=== PATIENT | male | born 1965 | race African-American/Black ===

== ENCOUNTER 2016-12-06 10:32 | Inpatient (IN) | payer OTHER ==
[~2016-12-06] VITALS: Ht 188 cm; Wt 121.1 kg
[~2016-12-06 10:32] MED LIST: ASCRIPTIN1 TA1 PO; HCTZ12.5TAB PO; MIDRIN 325 MG-11 CAP PO; NORCO 325 MG-7.1 TAB PO; ZESTRIL 20MG TA20 MG PO
[2017-02-01] MEDS ORDERED: VITAMIN D1000 IU PO (12:51)
[2017-02-01] MEDS ORDERED: ASPIRIN 81M81 MG/TA2 PO (12:51)
[2017-02-01] MEDS ORDERED: ZANTAC 150150 MG PO (12:52)
[2017-02-01] MEDS ORDERED: LIPITOR 40MG TA40 MG PO (12:52)
[2017-02-01] MEDS ORDERED: ZYRTEC5 MG PO (12:53)
[2017-02-04] VITALS (10 sets, daily range): BP systolic 102–1146; BP diastolic 51–77; PULSE 16–71; TEMP 98.2–98.7
[2017-02-05 00:56] VITALS: BP 104/75; PULSE 90; TEMP 98.9
[2017-02-05 04:02] VITALS: BP 110/56; PULSE 86; TEMP 98.6
[2017-02-05] MEDS ORDERED: NORCO 325 MG-7.1 TAB PO (06:13)
[2017-02-05] MEDS ORDERED: ASPI325T6 PO (06:13)
[2017-02-05] MEDS ORDERED: CELEBREX 200MG200 MG PO (06:13)
[2017-02-05] MEDS ORDERED: ULTRAM 50MG TAB50 MG PO (06:14)
[2017-02-05 07:32] LABS: HEMATOCRIT 40.6 % (42.0-52.0); HEMOGLOBIN 12.9 g/dl (13.5-18.0)
[2017-02-05 07:35] VITALS: BP 105/59; PULSE 85; TEMP 98.1
[2017-02-05 11:44] VITALS: BP 125/66; PULSE 78; TEMP 98.8
[2017-02-05 15:36] VITALS: BP 123/55; PULSE 105; TEMP 99.9
[2017-02-05 20:08] VITALS: BP 110/51; PULSE 63; TEMP 98.6
[2017-02-06 00:37] VITALS: BP 94/76; PULSE 53; TEMP 98.5
[2017-02-06 05:03] VITALS: BP 103/50; PULSE 61; TEMP 97.1
[2017-02-06 06:40] LABS: HEMATOCRIT 39.1 % (42.0-52.0)
[2017-02-06 07:10] VITALS: BP 93/60; PULSE 86; TEMP 98
[2017-02-06 19:59] VITALS: BP 127/63; PULSE 106; TEMP 98.3
[2017-02-07 00:17] VITALS: BP 102/75; PULSE 92; TEMP 98.1
[2017-02-07 03:45] VITALS: BP 126/90; PULSE 97; TEMP 98.2
[2017-02-07 07:41] VITALS: BP 121/62; PULSE 91; TEMP 98.2
[2017-02-07 11:57] VITALS: BP 125/75; PULSE 75; TEMP 98.1
== END 2017-02-07 14:11 | disposition home or self-care (01) | DRG 470 ==
LOC: JCC 02-04 10:00
PROVIDERS: Orthopaedic Surgery; Physician Assistant
PROC: 0SRB0JA Replacement of Left Hip Joint with Synthetic Substitute, Uncemented, Open Approach (ICD-10-PCS; principal; 2017-02-04 11:45)
DX: M16.12 Unilateral primary osteoarthritis, left hip (principal)
CPT/HCPCS: A4315; A9284; C1713; C1776; J0690; J1885; J2250; J2405; J2704; J3010; J7120

== ENCOUNTER → 2017-01-28 | Outpatient (CLI) | payer OTHER ==
[~2017-01-28] MED LIST changes: +ASPI325T6 PO; +ASPIRIN 81M81 MG/TA2 PO; +CELEBREX 200MG200 MG PO; +LIPITOR 40MG TA40 MG PO; +ULTRAM 50MG TAB50 MG PO; +VITAMIN D1000 IU PO; +ZANTAC 150150 MG PO; +ZYRTEC5 MG PO
== END ==
LOC: COL.LAB 13:54
DX: Z01.812 Encounter for preprocedural laboratory examination (principal); M16.12 Unilateral primary osteoarthritis, left hip

== ENCOUNTER → 2017-01-31 | Outpatient (CLI) | payer OTHER ==
[2017-01-31 17:13] LABS: PROTHROMBIN TIME 11.4 SECONDS (9.7-12.8)
== END ==
LOC: COL.LAB 16:37
PROVIDERS: Orthopaedic Surgery
DX: Z01.812 Encounter for preprocedural laboratory examination (principal); M16.12 Unilateral primary osteoarthritis, left hip